=== PATIENT | female | born 1975 | race Caucasian/White ===

== ENCOUNTER 2022-09-18 08:54 | Day surgery (SDC) | payer BC ==
[~2022-09-18 08:54] MED LIST: Albuterol 0.083% 2.5 MG/3 ML Neb Soln NEB PRN; HYDROmorphone 1 MG/ML Syringe IVPUSH PRN; Lactated Ringers 1,000 ML IV SCH; Metoclopramide 10 MG/2 ML SDV IVPUSH PRN; Morphine 2 MG/ML SYRINGE IVPUSH PRN; Naloxone 0.4 MG/ML SDV IVPUSH PRN; Ondansetron 4 MG/2 ML SDV IVPUSH PRN; Sodium Chloride 0.9% 10 ML Syringe FLUSH PRN; Sodium Chloride 0.9% 2.5 ML Syringe FLUSH PRN; Sodium Chloride 0.9% 20 ML SDV IV PRN; cefOXitin 1 GM in Premix Bag 1 BAG IV ONE; droPERidol 5 MG/2 ML SDV IVPUSH PRN; fentaNYL 50 MCG/ML SDV IVPUSH PRN
[2022-09-18] MEDS ORDERED: propofoL 50 ML ONE (09:40)
[2022-09-18] MEDS ORDERED: fentaNYL 100 MCG/2 ML SDV ONE (09:40)
[2022-09-18] MEDS ORDERED: Bupivacaine 0.5% 30 ML SDV ONE (09:53)
[2022-09-18] MEDS ORDERED: cefOXitin 1 GM Vial ONE (10:26)
[2022-09-18] MEDS ORDERED: Propofol 200 MG/20 ML SDV ONE (10:51)
[2022-09-18] MEDS ORDERED: Lidocaine 2% 11 ML Jelly Filled Syringe ONE (10:52)
[2022-09-18] MEDS ORDERED: Ketorolac 30 MG/ML SDV ONE (12:04)
[2022-09-18] MEDS ORDERED: Cyclobenzaprine 10 MG Tab PO ONE (14:31)
== END 2022-09-18 15:00 | disposition home or self-care (01) ==
LOC: MW.SDS 08:54
PROVIDERS: ATTEND Surgery
DX: Z12.11 Encounter for screening for malignant neoplasm of colon (principal); K64.3 Fourth degree hemorrhoids; K64.4 Residual hemorrhoidal skin tags; Z83.71 Family history of colonic polyps; Z79.899 Other long term (current) drug therapy
CPT/HCPCS: 45378; 46260; 81025; A9270; J0131; J0694; J1885; J2405; J2704; J3010; J3490; J7120; 00902